=== PATIENT | female | born 1970 | race Caucasian/White ===

== ENCOUNTER 2022-02-20 18:09 | Inpatient (IN) | payer MEDICAID ==
[~2022-02-20] VITALS: Ht 162.6 cm; Wt 96.2 kg
[~2022-02-20 18:09] MED LIST: OMEP20CA15 PO; ONDA-8 TL; PERC10 PO
[2022-02-20 18:21] VITALS: BP_SYST 166
[2022-02-20] MEDS ORDERED: NACL 0.9% 1,000 ML IV ONE (18:30)
[2022-02-20] MEDS ORDERED: ONDANSETRON HCL 4 MG/2 ML VIAL IVP ONE (18:30)
[2022-02-20] MEDS ORDERED: MORPHINE 4 MG INJ. 4 MG/ML VIAL IVP ONE ×2 (18:30→20:00)
--- NOTE | 2022-02-20 18:34 | NUR ---
PT BIB , AWAKE AND ALERT, C/O PAIN TO ABDOMIN. PT STATES PAIN 10/10. PT HAD LAP RACHEL THE PREVIOUS DAY AND STATES PAIN MEDS PRESCRIBED ARE NOT HELPING HER. PT DENIES N/V. NO SOB OR DISTRESS.
--- NOTE | 2022-02-20 18:36 | NUR ---
MD DR JESSICA AT BEDSIDE
--- NOTE | 2022-02-20 18:36 | NUR ---
X RAY AT BEDSIDE NOW
[2022-02-20 19:05] LABS: BASOPHILS # (AUTO) 0.1 K/uL (0.0-0.2); BASOPHILS % (AUTO) 0.8 % (0.0-2.0); EOSINOPHILS # (AUTO) 0.1 K/uL (0.0-0.4); EOSINOPHILS % (AUTO) 1.1 % (0.0-4.0); HEMATOCRIT 34.7 % (36-48); HEMOGLOBIN 11.3 g/dL (12.0-16.0); LYMPHOCYTES # (AUTO) 1.1 K/uL (1.0-5.5); LYMPHOCYTES % (AUTO) 9.1 % (20.5-51.5); MEAN CORPUSCULAR HEMOGLOBIN 24 pg (27-31); MEAN CORPUSCULAR HGB CONC 33 % (32-36); MEAN CORPUSCULAR VOLUME 73 fL (79.0-98.0); MONOCYTES # (AUTO) 0.9 K/uL (0.0-1.0); MONOCYTES % (AUTO) 7.4 % (1.7-9.3); NEUTROPHILS # (AUTO) 9.9 K/uL (1.8-7.7); NEUTROPHILS % (AUTO) 81.6 % (40.0-70.0); PLATELET COUNT (AUTO) 275 K/uL (130-430); RED BLOOD CELL COUNT(AUTO) 4.74 MIL/uL (4.2-6.2); RED CELL DISTRIBUTION WIDTH 15.2 % (9.0-15.0); WHITE BLOOD COUNT (AUTO) 12.1 K/uL (4.8-10.8)
--- NOTE | 2022-02-20 19:25 | NUR ---
COVID-19 SWAB SENT TO LAB.
[2022-02-20 19:39] LABS: CALCIUM 8.3 mg/dL (8.4-11.0); CREATININE 0.84 mg/dL (0.55-1.30)
[2022-02-20 19:43] LABS: ALBUMIN 2.5 g/dL (3.4-4.8); TOTAL BILIRUBIN 0.4 mg/dL (0.0-1.0)
[2022-02-20] MEDS ORDERED: MORPHINE 2 MG/ML INJ. SYRINGE IVP PRN (20:15)
[2022-02-20] MEDS ORDERED: DOCUSATE SODIUM 100 MG CAPSULE PO PRN (20:15)
[2022-02-20] MEDS ORDERED: ZOLPIDEM TARTRATE 5 MG TABLET PO PRN (20:15)
[2022-02-20] MEDS ORDERED: LORazepam 2 MG/ML VIAL IVP PRN (20:15)
[2022-02-20] MEDS ORDERED: MAGNESIUM SULFATE 50 ML IV PRN (20:15)
[2022-02-20] MEDS ORDERED: MUPIROCIN 2% TOPICAL OINTMENT 22 GM NS PRN (20:15)
[2022-02-20] MEDS ORDERED: cloNIDine HCL 0.1 MG TABLET PO PRN (20:15)
[2022-02-20] MEDS ORDERED: ACETAMINOPHEN 325 MG TABLET PO PRN ×2 (20:15→21:00)
--- NOTE | 2022-02-20 20:24 | NUR ---
Admit bed requested Patient will be admitted to care of Admitted to MS unit. Diagnosis Abdominal Pain Inpatient (Yes or No) yes Observation (Yes or No) no Orientation concerns or request close to nursing station (Yes or No) no Covid Status negative On vent or bipap no Isolation requirements no Needs a sitter no From Home (Yes or if No enter name of facility) yes Requires Dialysis (Yes or No) no Med Rec Completed (Yes of No) yes
--- NOTE | 2022-02-20 21:31 | NUR ---
Patient will be admitted to care of MD Guido. Admitted to MS unit. Will go to room 117B. Complete and up to date summary report printed. SBAR report given at bedside to receiving RUBEN White with opportunity for questions. at bedside during admit to MS.
--- NOTE | 2022-02-20 21:50 | NUR ---
Admission Note Received patient from ER with diagnosis of ab pain. Initial Plan of Care discussed-patient verbalized understanding. Oriented to room, call light, pain management and safety.
[2022-02-20 22:01] LABS: BILIRUBIN,URINE NEGATIVE (NEGATIVE); BLOOD, URINE 1+ (NEGATIVE); CLARITY/URINE CLEAR (CLEAR); COLOR,URINE YELLOW (YELLOW); GLUCOSE,URINE NEGATIVE (NEGATIVE); KETONES,URINE 2+ (NEGATIVE); LEUKOCYTE ESTERASE ,URINE NEGATIVE (NEGATIVE); NITRITE, URINE NEGATIVE (NEGATIVE); PH,URINE 5.5 (5.0-8.0); PROTEIN URINE NEGATIVE (NEGATIVE); UROBILINOGEN,URINE 0.2 (0.2-1.0)
[2022-02-20] MEDS: MORPHINE 2 MG/ML INJ. SYRINGE IVP PRN (22:03)
[2022-02-20 22:08] VITALS: BP_SYST 161
--- NOTE | 2022-02-20 22:17 | NUR ---
CONSULTATION PAGED/CALLED Reason for Consultation: ABD PAIN, POST OP Person Who was Notified:KATHLEEN Consulting Physician: SIRISHA Edge Dyer Specialty: Ordering Physician: ENRIKE
[2022-02-20] MEDS: D5NS 1,000 ML IV SCH (22:20)
[2022-02-20 22:21] LABS: BACTERIA,URINE RARE /HPF (None Seen); MUCUS,URINE None Seen /LPF (None Seen); RBC,URINE 0-3 /HPF (0-3); WBC,URINE 0-3 /HPF (0-3)
[2022-02-20] MEDS: metroNIDAZOLE 500 mg/NS 100 ML IV SCH (23:34)
[2022-02-21 00:30] VITALS: BP_SYST 148
--- NOTE | 2022-02-21 02:00 | NUR ---
PAIN PRN MEDICATION GIVEN AT THIS TIME. WILL MONITOR AND REASSESS.
[2022-02-21] MEDS: MORPHINE 2 MG/ML INJ. SYRINGE IVP PRN ×5 (02:06→22:31)
[2022-02-21] MEDS: metroNIDAZOLE 500 mg/NS 100 ML IV SCH ×3 (06:01→23:38)
[2022-02-21] MEDS: D5NS 1,000 ML IV SCH ×3 (06:04→20:08)
--- NOTE | 2022-02-21 06:23 | NUR ---
PAIN/CLOSING NOTE PATIENT COMPLAINED OF PAIN, PRN MEDICATION ADMINISTERED. OTHERWISE, NO S/S OF ACUTE DISTRESS. BREATHING EVEN AND UNLABORED. IVF INFUSING WELL, IV SITE IS PATENT, NO SIGNS OF INFILTRATION OR INFECTION NOTED. ALL NEEDS MET THROUGHOUT SHIFT. FALL, SAFETY PRECAUTIONS MAINTAINED THROUGHOUT SHIFT. WILL CONTINUE TO MONITOR UNTIL PATIENT CARE IS ENDORSED TO ONCOMING DAYSHIFT NURSE.
[2022-02-21 07:52] VITALS: BP_SYST 147
[2022-02-21 07:58] LABS: CALCIUM 8.3 mg/dL (8.4-11.0); CREATININE 0.68 mg/dL (0.55-1.30)
--- NOTE | 2022-02-21 08:04 | NUR ---
rn opening note patient is awake and alert complains of pain medicated per order. patient states the pain medication is giving her reflief for about 2 hours then it stats coming back. patients educated button puncher light for assistance. call light is with her. patient has no other needs at this time. report was endorsed by night nurse.
[2022-02-21 08:06] LABS: BASOPHILS # (AUTO) 0.1 K/uL (0.0-0.2); BASOPHILS % (AUTO) 0.7 % (0.0-2.0); EOSINOPHILS # (AUTO) 0.2 K/uL (0.0-0.4); EOSINOPHILS % (AUTO) 1.9 % (0.0-4.0); HEMATOCRIT 32.6 % (36-48); HEMOGLOBIN 10.5 g/dL (12.0-16.0); LYMPHOCYTES # (AUTO) 1.5 K/uL (1.0-5.5); MEAN CORPUSCULAR HEMOGLOBIN 24 pg (27-31); MEAN CORPUSCULAR HGB CONC 32 % (32-36); MEAN CORPUSCULAR VOLUME 74 fL (79.0-98.0); MONOCYTES # (AUTO) 1.1 K/uL (0.0-1.0); MONOCYTES % (AUTO) 8.7 % (1.7-9.3); NEUTROPHILS # (AUTO) 9.8 K/uL (1.8-7.7); NEUTROPHILS % (AUTO) 76.7 % (40.0-70.0); PLATELET COUNT (AUTO) 285 K/uL (130-430); RED CELL DISTRIBUTION WIDTH 15.2 % (9.0-15.0); WHITE BLOOD COUNT (AUTO) 12.8 K/uL (4.8-10.8)
--- NOTE | 2022-02-21 10:06 | NUR ---
pain medication patient complains of pain medicated per order. patient is awake and alert laying in bed. iv fluid bag hung per order. patient has call light with her educated to use for assistance. no other needs at this time.
[2022-02-21 12:00] VITALS: BP_SYST 145
[2022-02-21] MEDS: OXYCODONE/ACETAMINOPHEN 5-325 TABLET PO PRN ×2 (13:22→19:53)
[2022-02-21] MEDS: ONDANSETRON HCL 4 MG/2 ML VIAL IVP PRN ×2 (13:31→20:17)
--- NOTE | 2022-02-21 13:36 | NUR ---
pain medication patient complaints of pain and nausea medicated per order. patient is awake and alert laying in bed. patient has no other needs at this time. call light is with her educated to use for assistance.
[2022-02-21 16:17] VITALS: BP_SYST 103
--- NOTE | 2022-02-21 16:18 | NUR ---
medication patient complains of pain . medicated per order. patients scheduled medication given as order. patient has no other needs at this time. patient educated draftsperson light for assistance. call light is with her. patient states she is waiting for surgeon to come speak with her.
--- NOTE | 2022-02-21 18:33 | NUR ---
rn closing note patient appears to be resting with no signs of any distress,breathing is equal and non labored. all safety precautions in place. call light is with her. no other needs at this time.
--- NOTE | 2022-02-21 19:15 | NUR ---
OPENING NOTE REPORT RECEIVED FROM DAYSHIFT NURSE. PATIENT RECEIVED LYING IN BED, AWAKE, ALERT, NO S/S OF ACUTE DISTRESS. BREATHING EVEN AND UNLABORED. IVF INFUSING WELL. CALL LIGHT WITH PATIENT. BED IS LOCKED AND AT LOWEST POSITION. WILL CONTINUE TO MONITOR.
[2022-02-21 20:00] VITALS: BP_SYST 128
--- NOTE | 2022-02-21 20:00 | NUR ---
DR SIRISHA HENNING AT BEDSIDE TALKING TO PATIENT.
[2022-02-21] MEDS ORDERED: HYDROmorphone 1 MG/ML INJ. CARTRIDGE IVP PRN (20:15)
[2022-02-22] VITALS: BP_SYST 122
--- NOTE | 2022-02-22 | NUR ---
ROUNDS PATIENT IN BED RESTING AT THIS TIME. ALL NEEDS MET. WILL CONTINUE TO MONITOR.
[2022-02-22] MEDS: OXYCODONE/ACETAMINOPHEN 5-325 TABLET PO PRN (00:34)
[2022-02-22] MEDS: MORPHINE 2 MG/ML INJ. SYRINGE IVP PRN ×5 (02:29→20:13)
[2022-02-22] MEDS: ONDANSETRON HCL 4 MG/2 ML VIAL IVP PRN (02:29)
[2022-02-22] MEDS: metroNIDAZOLE 500 mg/NS 100 ML IV SCH ×3 (06:22→23:27)
--- NOTE | 2022-02-22 06:43 | NUR ---
CLOSING NOTE PATIENT IN BED, NO S/S OF ACUTE DISTRESS. BREATHING IS EVEN AND UNLABORED. IVF INFUSING WELL, IV SITE IS PATENT, NO SIGNS OF INFILTRATION OR INFECTION NOTED. ALL NEEDS MET THROUGHOUT SHIFT. FALL, SAFETY PRECAUTIONS MAINTAINED THROUGHOUT SHIFT. WILL CONTINUE TO MONITOR UNTIL PATIENT CARE IS ENDORSED TO ONCOMING DAYSHIFT NURSE.
--- NOTE | 2022-02-22 07:21 | NUR ---
receive the patient from the night warehouse selector misty White in a stable condition with admitting diagnosis of abdominal pain [id number] . no complain of pain at this time . no complain of respiratory distress. will continue to monitor
[2022-02-22 08:02] LABS: BASOPHILS # (AUTO) 0.1 K/uL (0.0-0.2); BASOPHILS % (AUTO) 0.7 % (0.0-2.0); EOSINOPHILS # (AUTO) 0.3 K/uL (0.0-0.4); EOSINOPHILS % (AUTO) 2.3 % (0.0-4.0); HEMATOCRIT 31.1 % (36-48); LYMPHOCYTES # (AUTO) 1.7 K/uL (1.0-5.5); LYMPHOCYTES % (AUTO) 13.4 % (20.5-51.5); MEAN CORPUSCULAR HEMOGLOBIN 24 pg (27-31); MEAN CORPUSCULAR HGB CONC 32 % (32-36); MEAN CORPUSCULAR VOLUME 74 fL (79.0-98.0); MONOCYTES # (AUTO) 1.3 K/uL (0.0-1.0); MONOCYTES % (AUTO) 10.1 % (1.7-9.3); NEUTROPHILS # (AUTO) 9.4 K/uL (1.8-7.7); NEUTROPHILS % (AUTO) 73.5 % (40.0-70.0); PLATELET COUNT (AUTO) 280 K/uL (130-430); RED BLOOD CELL COUNT(AUTO) 4.23 MIL/uL (4.2-6.2); RED CELL DISTRIBUTION WIDTH 15.2 % (9.0-15.0); WHITE BLOOD COUNT (AUTO) 12.8 K/uL (4.8-10.8)
[2022-02-22 08:22] LABS: CALCIUM 8.1 mg/dL (8.4-11.0); CREATININE 0.68 mg/dL (0.55-1.30)
[2022-02-22] MEDS: D5NS 1,000 ML IV SCH ×2 (11:27→22:29)
[2022-02-22 12:00] VITALS: BP_SYST 125
[2022-02-22] MEDS ORDERED: PANTOPRAZOLE SODIUM 40 MG TAB PO ONE (15:15)
[2022-02-22 16:58] VITALS: BP_SYST 123
--- NOTE | 2022-02-22 18:40 | NUR ---
will endorse to end frazer rn for continuity of care . for possible MRI of the abdomen
[2022-02-22] MEDS: POTASSIUM CHLORIDE 20 MEQ TAB.PRT.SR PO PRN (20:14)
[2022-02-22 21:04] VITALS: BP_SYST 146
[2022-02-23] MEDS: MORPHINE 2 MG/ML INJ. SYRINGE IVP PRN ×5 (00:46→21:47)
--- NOTE | 2022-02-23 05:38 | NUR ---
rn notes patient remains on room air, no sob noted. r hand 20, d5 NS 100 ml per hour. Patient states she was in pain every 3-4 hours and was asking morphine. Plan is to have an MRI of spleen thursday. Yet to be scheduled.
[2022-02-23] MEDS: metroNIDAZOLE 500 mg/NS 100 ML IV SCH ×3 (05:58→21:48)
[2022-02-23 08:00] VITALS: BP_SYST 142
[2022-02-23 08:07] LABS: CREATININE 0.68 mg/dL (0.55-1.30)
[2022-02-23 08:17] LABS: BASOPHILS # (AUTO) 0.1 K/uL (0.0-0.2); BASOPHILS % (AUTO) 0.8 % (0.0-2.0); EOSINOPHILS # (AUTO) 0.3 K/uL (0.0-0.4); HEMATOCRIT 31.4 % (36-48); HEMOGLOBIN 10.3 g/dL (12.0-16.0); LYMPHOCYTES # (AUTO) 1.6 K/uL (1.0-5.5); LYMPHOCYTES % (AUTO) 10.9 % (20.5-51.5); MEAN CORPUSCULAR HEMOGLOBIN 24 pg (27-31); MEAN CORPUSCULAR HGB CONC 33 % (32-36); MEAN CORPUSCULAR VOLUME 73 fL (79.0-98.0); MONOCYTES # (AUTO) 1.2 K/uL (0.0-1.0); NEUTROPHILS # (AUTO) 11.4 K/uL (1.8-7.7); NEUTROPHILS % (AUTO) 78.3 % (40.0-70.0); PLATELET COUNT (AUTO) 295 K/uL (130-430); RED BLOOD CELL COUNT(AUTO) 4.29 MIL/uL (4.2-6.2); RED CELL DISTRIBUTION WIDTH 15.5 % (9.0-15.0); WHITE BLOOD COUNT (AUTO) 14.5 K/uL (4.8-10.8)
[2022-02-23] MEDS: D5NS 1,000 ML IV SCH ×2 (09:02→18:32)
[2022-02-23] MEDS: PANTOPRAZOLE SODIUM 40 MG TAB PO SCH (09:03)
[2022-02-23 12:00] VITALS: BP_SYST 134
[2022-02-23] MEDS: POTASSIUM CHLORIDE 20 MEQ TAB.PRT.SR PO PRN (14:54)
[2022-02-23 16:00] VITALS: BP_SYST 139
--- NOTE | 2022-02-23 18:30 | NUR ---
Miss Garcia has been assessed as indicated. She has been successfully treated for pain x2 this shift. IVF continue and have been well tolerated. She ambulates to the restroom without assistance. She has steri strips to 3 abdominal lap sites, they remain CDI. She has been visited by her mom. She rests quietly at this time
--- NOTE | 2022-02-23 19:15 | NUR ---
Hand off has been given to Luis A
[2022-02-23 20:06] VITALS: BP_SYST 133
[2022-02-23 20:07] VITALS: BP_SYST 133
[2022-02-24] VITALS: BP_SYST 134
[2022-02-24] MEDS: MORPHINE 2 MG/ML INJ. SYRINGE IVP PRN ×4 (02:22→14:47)
[2022-02-24] MEDS: D5NS 1,000 ML IV SCH (02:27)
[2022-02-24] MEDS: metroNIDAZOLE 500 mg/NS 100 ML IV SCH ×2 (05:25→15:00)
--- NOTE | 2022-02-24 07:30 | NUR ---
OPENING NOTES: PATIENT IS RESTING IN BLAKE QUIETLY. AAOX4 ABLE TO MAKE NEEDS KNOWN. NO ADDITIONAL DISTRESS NOTED. EXPLAINED POC AND PATIENT VERBALIZED UNDERSTANDING. BED IN LOW AND LOCK POSITION. CALL LIGHT WITHIN REACH. STABLE CONDITION AT THIS TIME.
[2022-02-24 08:00] VITALS: BP_SYST 155
[2022-02-24 08:18] LABS: BASOPHILS # (AUTO) 0.1 K/uL (0.0-0.2); BASOPHILS % (AUTO) 0.8 % (0.0-2.0); EOSINOPHILS # (AUTO) 0.4 K/uL (0.0-0.4); EOSINOPHILS % (AUTO) 2.9 % (0.0-4.0); HEMATOCRIT 32.5 % (36-48); HEMOGLOBIN 10.5 g/dL (12.0-16.0); LYMPHOCYTES # (AUTO) 1.4 K/uL (1.0-5.5); LYMPHOCYTES % (AUTO) 11.2 % (20.5-51.5); MEAN CORPUSCULAR HEMOGLOBIN 24 pg (27-31); MEAN CORPUSCULAR HGB CONC 32 % (32-36); MEAN CORPUSCULAR VOLUME 73 fL (79.0-98.0); MONOCYTES # (AUTO) 1.3 K/uL (0.0-1.0); MONOCYTES % (AUTO) 9.8 % (1.7-9.3); NEUTROPHILS # (AUTO) 9.6 K/uL (1.8-7.7); NEUTROPHILS % (AUTO) 75.3 % (40.0-70.0); PLATELET COUNT (AUTO) 302 K/uL (130-430); RED BLOOD CELL COUNT(AUTO) 4.47 MIL/uL (4.2-6.2); RED CELL DISTRIBUTION WIDTH 15.6 % (9.0-15.0); WHITE BLOOD COUNT (AUTO) 12.7 K/uL (4.8-10.8)
[2022-02-24 08:33] LABS: CALCIUM 8.3 mg/dL (8.4-11.0); CREATININE 0.67 mg/dL (0.55-1.30)
--- NOTE | 2022-02-24 09:45 | NUR ---
TO MRI: PATIENT LEFT THE UNIT IN A STABLE CONDITION FOR MRI.
--- NOTE | 2022-02-24 10:00 | NUR ---
RETURNED FROM MRI: PATIENT UNABLE TO STAY STILL AND HAD PANIC ATTACK. PATIENT WAS CRYING AND STATED SHE CANNOT REPEAT THE TEST EVEN WITH ATIVAN. WILL LET DR GRIMM AWARE MRI NOT DONE.
[2022-02-24] MEDS: PANTOPRAZOLE SODIUM 40 MG TAB PO SCH (10:18)
[2022-02-24] MEDS ORDERED: GADOTERATE MEGLUMINE 7.5 MMOL/15 ML VIAL IV ONE (10:36)
--- NOTE | 2022-02-24 11:00 | NUR ---
REFUSED IVF: PER PATIENT IS GIVING HER ANXIETY WHEN IT BEEPS. MADE AWARE TO PATIENT TO NOT BEND HER ARM. BUT CONT. TO REFUSED.
[2022-02-24] MEDS ORDERED: POTASSIUM CHLORIDE 20 MEQ TAB.PRT.SR PO ONE (12:30)
--- NOTE | 2022-02-24 12:30 | NUR ---
K 3.3; SPOKE WITH DR GRIMM AND MADE AWARE OF PATIENT REFUSED MRI DUE TO PANIC/ANXIETY ATTACK DURING RADIATION. OFFERED ATIVAN PRIOR TO RADIATION BUT REFUSED. K 3.3 RECEIVED N/O OF KDUR 40MEQ PO X1.
[2022-02-24 12:40] VITALS: BP_SYST 137
[2022-02-24 16:33] VITALS: BP_SYST 139
[2022-02-24] MEDS ORDERED: METR-154 PO (16:44)
[2022-02-24] MEDS ORDERED: LEVO-62 PO (16:44)
[2022-02-24 18:11] VITALS: BP_SYST 139
--- NOTE | 2022-02-24 18:35 | NUR ---
DC INSTRUCTIONS: EXPLAINED AND GIVEN DC INSTRUCTIONS TO PATIENT AND SHE VERBALIZED UNDERSTANDING. AT THE BEDSIDE AND ALSO BOUGHT THE HOSPITAL WHEELCHAIR IN THE ROOM. IV REMOVED FROM THE RH. IV CATH INTACT WHEN REMOVED. NO BLEEDING NOTED. COVER SITE WITH GAUZE AND SECURE WITH BAN-AID. PATIENT IS CURRENTLY HAVING A PANIC BREAKFAST DUE TO BEING UPSET ABOUT GOING HOME. HOWEVER, PATIENT DOES WANT TO GO HOME. MADE AWARE TO PATIENT TO CALL THE NURSE WHEN READY TO BE WHEELED OUT. IS AT THE BEDSIDE TRYING TO CALM THE PATIENT.
--- NOTE | 2022-02-24 18:45 | NUR ---
DR SIRISHA SHIELDS DC: SAW DR. GRIMM AT THE NURSES STATION AND STATED THAT HE SAW THE PATIENT. PER MD, PATIENT IS WILLING TO GO HOME. AWAITING FOR PATIENT TO CALL THE NURSE TO BE WHEELED OUT.
--- NOTE | 2022-02-24 19:00 | NUR ---
PATIENT LEFT THE FACILITY: WENT TO PATIENT ROOM AND PATIENT WAS WHEELED OUT BY HER W/O NOTIFYING THE NURSE. ASSESS THE ROOM AND ALL PERSONAL BELONGINGS WAS GONE.
[2022-02-25] MEDS ORDERED: HYDR-3917 PO (07:04)
== END 2022-02-24 22:38 | disposition home or self-care (01) | DRG 861 ==
LOC: SED 18:09 → SMU 20:22
PROVIDERS: ADMIT General Practice; ATTEND General Practice
DX: G89.18 Other acute postprocedural pain (principal); E43 Unspecified severe protein-calorie malnutrition; R65.10 Systemic inflammatory response syndrome (SIRS) of non-infectious origin without acute organ dysfunction; K30 Functional dyspepsia; E66.9 Obesity, unspecified; K21.9 Gastro-esophageal reflux disease without esophagitis; E78.00 Pure hypercholesterolemia, unspecified; Z20.822 Contact with and (suspected) exposure to COVID-19; Z88.0 Allergy status to penicillin; Z88.2 Allergy status to sulfonamides; Z79.899 Other long term (current) drug therapy; Z90.49 Acquired absence of other specified parts of digestive tract; Z98.84 Bariatric surgery status; Z68.36 Body mass index [BMI] 36.0-36.9, adult
CPT/HCPCS: 36415; 71045; 71046-TC; 76376; 80048; 80053; 81000; 83036; 83690; 83735; 85025; 87081; 96361; 96374; 96375; 96376; 99285; A9575; J1956; J2270; J2405; J3490; J7030; J7042; Q9967